=== PATIENT | male | born 1930 | race Caucasian/White ===

== ENCOUNTER 2019-01-15 09:10 | Emergency (ER) | payer OTHER, MEDICARE ==
[~2019-01-15] VITALS: Ht 182.9 cm; Wt 68.0 kg
[2019-01-15] MEDS ORDERED: LEVO-T100 MCG PO (09:54)
[2019-01-15] MEDS ORDERED: MIDODRINE HCL 55 M1 PO (09:54)
[2019-01-15] MEDS ORDERED: ALLER-CHLOR4 MG PO (09:55)
[2019-01-15 09:56] LABS: BASOPHILS 0.5 % (0.0-2.0); EOSINOPHILS 0.6 % (0.0-3.0); HEMATOCRIT 44.5 % (42.0-52.0); HEMOGLOBIN 14.6 gm/dL (14.0-18.0); LYMPHOCYTES 20.4 % (24.0-44.0); MCH 30.3 pg (26.0-34.0); MCHC 32.8 g/dL (28.0-37.0); MCV 92.4 fL (80.0-100.0); MONOCYTES 10.8 % (1.0-8.0); PLATELET COUNT 223 thou/uL (150-400); POLYS 67.7 % (36.0-66.0); RBC 4.82 mil/uL (4.50-6.00); RDW 16.5 % (10.5-14.5); WBC 7.3 thou/uL (4.0-11.0)
[2019-01-15] MEDS ORDERED: AMIODARONE HCL400 MG PO (09:57)
[2019-01-15 10:02] LABS: CALCIUM 9.5 mg/dL (8.5-10.1); CREATININE 1.2 mg/dL (0.7-1.3); POTASSIUM 4.3 mmol/L (3.5-5.1)
[2019-01-15] MEDS ORDERED: FLOMAX0.4 MG PO (10:03)
[2019-01-15 10:06] LABS: URINE BILIRUBIN NEGATIVE (Negative); URINE BLOOD 3+ (Negative); URINE CLARITY HAZY; URINE COLOR YELLOW; URINE GLUCOSE-RANDOM* NEGATIVE (Negative); URINE KETONES NEGATIVE (Negative); URINE LEUKOCYTES-REFLEX 3+ (Negative); URINE NITRITE-REFLEX NEGATIVE (Negative); URINE PROTEIN (DIPSTICK) NEGATIVE (Negative); URINE SPECIFIC GRAVITY 1.025 (1.005-1.035); URINE UROBILINOGEN 0.2 E.U./dl (0.2-1.0)
[2019-01-15 10:08] LABS: ALBUMIN 3.1 g/dL (3.4-5.0); TOTAL BILIRUBIN 1.6 mg/dL (<0.1-1.0); TOTAL PROTEIN 6.9 g/dL (6.4-8.2)
[2019-01-15 10:51] LABS: SQUAMOUS 0-3 Few /LPF (0-3); YEAST-REFLEX Present (None Seen)
[2019-01-15 10:52] LABS: BACTERIA-REFLEX 1-9 Few /HPF (None Seen); CASTS None Seen /LPF (None Seen); CRYSTALS None Seen /LPF (None Seen); URINE WBC-REFLEX >25 Many /HPF (0-5)
[2019-01-15 14:38] VITALS: BP 93/58
== END 2019-01-15 14:40 | disposition short-term general hospital (02) ==
LOC: ER 09:10
PROVIDERS: Emergency Medicine
DX: N39.0 Urinary tract infection, site not specified (principal); I25.10 Atherosclerotic heart disease of native coronary artery without angina pectoris; Z95.1 Presence of aortocoronary bypass graft; Z87.01 Personal history of pneumonia (recurrent)